=== PATIENT | male | born 1975 | race Caucasian/White ===

== ENCOUNTER → 2019-09-14 14:14 | Outpatient (CLI) | payer OTHER, SELFPAY ==
[2019-09-14 14:53] LABS: Influenza A - CEPHEID Flu A NEGATIVE (NEGATIVE); Influenza B - CEPHEID Flu B NEGATIVE (NEGATIVE)
== END ==
PROVIDERS: Visit Provider Physician Assistant
DX: R50.9 Fever, unspecified (principal)
CPT/HCPCS: 87502

== ENCOUNTER → 2019-09-17 10:48 | Outpatient (CLI) | payer OTHER, SELFPAY ==
--- NOTE | 2019-09-17 10:53 | DI.RAD.S_ITS ---
PROCEDURE: XR CHEST 2V INDICATIONS: cough TECHNIQUE: 2 views of the chest were acquired. COMPARISON: None. FINDINGS: Surgical changes and devices: None. Lungs and pleura: There are confluent right perihilar upper lobe opacities compatible with consolidation. Left lung is clear. No pleural effusions or pneumothorax. Mediastinum: The right mediastinal contours are partially obscured by patient's right upper lobe airspace disease. Heart size is normal. Bones and chest wall: No suspicious bony abnormalities. Soft tissues appear unremarkable. IMPRESSION: 1. Right upper lobe consolidation consistent with pneumonia given clinical history. Consider a short-term followup study to demonstrate resolution following appropriate therapy. Dictated by: aKn Valdez M.D. on 09/17/2019 at 10:04 Approved by: Kan Valdez M.D. on 09/17/2019 at 10:06
== END ==
PROVIDERS: PCP Family Medicine Sports Medicine; Referring Provider Physician Assistant; Visit Provider Physician Assistant
DX: R05 Cough (principal)
CPT/HCPCS: 71046